=== PATIENT | male | born 1995 | race Caucasian/White ===

== ENCOUNTER 2024-01-20 02:04 | Emergency (ER) | payer OTHER ==
[~2024-01-20] VITALS: Ht 172.7 cm; Wt 101.0 kg
[2024-01-20 02:07] VITALS: BP 150/85; PULSE 98; RESP 18; TEMP 98.5; O2SAT 100
== END 2024-01-20 02:29 | disposition left against medical advice (07) ==
LOC: ER 02:04
DX: Z53.21 Procedure and treatment not carried out due to patient leaving prior to being seen by health care provider (principal)